=== PATIENT | male | born 1995 | race Caucasian/White ===

== ENCOUNTER 2017-09-03 16:49 | Emergency (ER) | payer SELFPAY ==
[2017-09-03] MEDS ORDERED: CYCLOBENZAPRINE 10 MG TAB PO STA (17:19)
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
[2017-09-03] MEDS: ONDANSETRON ODT 4 MG TAB PO STA ×2 (17:47→17:51)
[2017-09-03] MEDS ORDERED: ONDANSETRON ODT 4 MG TAB PO STA (17:50)
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
[2017-09-03 19:09] VITALS: BP 118/57; PULSE 62; RESP 18; TEMP 97.9
== END 2017-09-03 19:27 | disposition home or self-care (01) ==
LOC: EC 16:49
DX: S13.4XXA Sprain of ligaments of cervical spine, initial encounter (principal); S09.90XA Unspecified injury of head, initial encounter; V49.50XA Passenger injured in collision with unspecified motor vehicles in traffic accident, initial encounter; Y92.410 Unspecified street and highway as the place of occurrence of the external cause
CPT/HCPCS: 70450; 72125; 99284